=== PATIENT | female | born 1975 | race African-American/Black ===

== ENCOUNTER → 2017-08-24 | Emergency (ER) | payer SELFPAY ==
[~2017-08-24] VITALS: Ht 167.6 cm; Wt 70.3 kg
[~2017-08-24] MED LIST: Acetaminophen 500mg (ES) tab ORAL ONE; IBUPROFEN600 MG ORAL; LIDOCAINE700 M1 TP; METHOCARBAMOL500 MG ORAL; Methocarbamol 500mg tab ORAL ONE; NKM; TYLENOL EXTRA500 MG ORAL
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
[2017-08-24 16:44] VITALS: BP 138/79
== END | disposition home or self-care (01) ==
LOC: EMR 16:20
DX: M54.2 Cervicalgia (principal); M54.5 Low back pain; V43.52XA Car driver injured in collision with other type car in traffic accident, initial encounter; Y92.410 Unspecified street and highway as the place of occurrence of the external cause
CPT/HCPCS: 99284